=== PATIENT | female | born 1950 | race Caucasian/White ===

== ENCOUNTER 2019-04-23 17:12 | Observation (INO) | payer MEDICARE ==
[2019-04-23 20:26] LABS: CARBON DIOXIDE,CO2 25.3 mmol/L (21.0-32.0); POTASSIUM,K 2.9 mmol/L (3.5-5.1)
[2019-04-23] MEDS ORDERED: Potassium Chloride Riders 20 MEQ in Premix Bag 1 BAG IV ONE (20:44)
--- NOTE | 2019-04-23 21:44 | CR ---
INDICATION: Shortness of breath TECHNIQUE: Single view chest. FINDINGS: The lungs are clear. The heart, mediastinum and pulmonary vessels are of normal size. There is no evidence of pleural disease. IMPRESSION: Negative chest. Dictated by Kelsie Olguin MD @ Apr 23 2019 9:41PM Signed by Dr. Kelsie Olguin @ Apr 23 2019 9:41PM
[2019-04-23] MEDS ORDERED: Sodium Chloride 0.9% 500 ML IV SCH (22:00)
[2019-04-23] MEDS ORDERED: Sodium Chloride 0.9% 1,000 ML IV ONE (23:35)
--- NOTE | 2019-04-23 23:38 | EDM.PDOC ---
ED [facility] GENERAL MEDICAL PROBLEM - General Chief Complaint: General Stated Complaint: POSSIBLE UTI,COLD SYMPTOMS Time Seen by Provider: 04/23/19 20:36 - History of Present Illness INITIAL COMMENTS - FREE TEXT/NARRATIVE: HPI 69-year-old female presents for evaluation of dysuria, urinary frequency, and urge incontinence. Incidentally notes a mild, gradual onset headache that began after she started experiencing urinary frequency. Symptoms been present for 1+ days. No fevers or chills. M/S/F/SocHx notable for: please see HPI; remainder reviewed with patient and in chart. ROS: Negative constitutional, eye, cardiovascular, pulmonary, GI, , MSK, skin , neurologic, psychiatric, endocrine unless noted in the HPI. Exam Gen: Pleasant, non-toxic appearing, resting comfortably. HEENT: NC, AT, PEERL, EOMI. Nontender temporal arteries with 2+ pulses bilaterally. Resp: Clear to auscultation bilaterally, normal work of breathing, no accessory muscle usage. Card: Regular rate and rhythm with no murmurs, rubs, or gallops, extremities warm and well perfused. GI: Non-tender to palpation throughout all quadrants, no focal tenderness at McBurney's point, negative Meyer's sign, non-distended, no rebound or guarding. : No suprapubic tenderness to palpation. MSK: No visible deformities, strength and tone without visually appreciable deficit. Skin: Normal color with no visible lesions. Neuro: alert and oriented 3, no facial asymmetry, no gaze preference, no slurring of speech. CN II-III: pupils equal and reactive (3->2mm bilaterally); III, IV, : EOMI, V1-V3: sensation to touch bilaterally intact; VII: no facial asymmetry (frown / smile); VIII: no nystagmus; X: phonation intact, uvula midline; XI: trapezius 5/5 bilaterally, XII: tongue midline. Cerebellar: no pronator drift, [id number] testing without dysmetria bilaterally, heel to rooney without dysmetria bilaterally. Psych: Mood and affect appropriate. Labs / Imaging: CXR: no acute cardiopulmonary abnormality. WBC 16.14, HB 15.4, sodium 133, potassium 2.9, creatinine 1.1, total bilirubin 1.8, AST 24, ALT 31, lipase 16. UA - positive nitrate, large leukocyte esterase, 3+ bacteria, moderate occult blood. MDM Previous chart, nursing note, labs, imaging, and vitals reviewed. A: 69-year-old female presents for evaluation of dysuria, urinary frequency, and urge incontinence. DDx: UTI, ureterolithiasis, pyelonephritis, sepsis, electrolyte abnormalities. Evaluation: patient with mild hypokalemia, leukocytosis, UTI, and no features ( absence of flank pain or relevant history) of ureterolithiasis. Patient meets [facility] sepsis criteria by leukocytosis and tachycardia, patient previously received 500 ML NS and 20 mEq potassium (ordered by JAZMIN). Lactic acid added on, 1 g ceftriaxone given. Blood cultures ordered. Patient admitted for further care. Impression: sepsis, pyelonephritis, hypokalemia. (please reference below for remainder of encounter information) Critical Care Time Organ system(s): Renal Intervention: Assessment of the patient, interpretation of studies, communication related to patient care. Time: 30 minutes were spent directly related to patient care exclusive of separately billed procedures. headache Pain Score (Numeric/FACES): 7 - Related Data Allergies Allergy/AdvReac Type Severity Reaction Status Date / Time Penicillins Allergy Rash Verified 04/23/19 18:24 Home Meds: Home Meds Albuterol Sulfate [Proair Hfa] 1 puff INH ASDIRECTED 04/23/19 [History] Fluticasone Propionate [Flovent HFA] 1 puff INH ASDIRECTED 04/23/19 [History] Pravastatin [Pravachol] 20 mg PO DAILY 04/23/19 [History] Spironolact/Hydrochlorothiazid [Spironolactone-HCTZ 25-25] 1 tab PO DAILY [History] Past Medical History - Past Health History Medical/Surgical History: Denies Medical/Surgical History Cardiovascular History: Reports: High Cholesterol, Hypertension Respiratory History: Reports: Asthma [employer] History: Reports: - Past Surgical History HEENT Surgical History: Reports: Tonsillectomy Musculoskeletal Surgical History: Reports: Other (See Below) Other Musculoskeletal Surgeries/Procedures:: foot surgery, arm surgery Social & Family History - Family History Family Medical History: Noncontributory - Tobacco Use Smoking Status *Q: Never Smoker - Recreational Drug Use Recreational Drug Use: No ED ROS GENERAL - Review of Systems Review Of Systems: See Below ED EXAM, GENERAL - Physical Exam Exam: See Below Course - Vital Signs Last Recorded V/S: Last Vital Signs Temp 36.8 C 04/23/19 22:15 Pulse 94 04/23/19 22:15 Resp 18 04/23/19 22:15 BP 135/53 L 04/23/19 22:15 Pulse Ox 95 04/23/19 22:15 - Orders/Labs/Meds Orders: Active Orders 24 hr Category Date Time Status EKG Documentation Completion [RC] STAT Care 04/23/19 20:33 Active Head wo Cont [CT] Stat Exams 04/23/19 22:13 Ordered CULTURE BLOOD [BC] Stat Lab 04/23/19 23:36 Ordered CULTURE BLOOD [BC] Stat Lab 04/23/19 23:36 Ordered CULTURE STREP A CONFIRMATION [RM] Stat Lab 04/23/19 19:45 Results CULTURE URINE [RM] Stat Lab 04/23/19 18:48 Received LACTIC ACID,WHOLE BLOOD [BG] Stat Lab 04/23/19 23:36 Ordered STREP SCRN A RAPID W CULT CONF [RM] Stat Lab 04/23/19 19:45 Results Sodium Chloride 0.9% [Normal Saline] 1,000 ml Med 04/23/19 23:35 Ordered IV .Bolus Sodium Chloride 0.9% [Normal Saline] 500 ml Med 04/23/19 22:00 Active IV STAT Blood Culture x2 Reflex Set [OM.PC] Stat Oth 04/23/19 23:36 Ordered Medication Orders Sodium Chloride (Normal Saline) 500 mls @ 999 mls/hr IV STAT BEATRIZ Last Admin: 04/23/19 21:58 Dose: 999 mls/hr Sodium Chloride (Normal Saline) 1,000 mls @ 1,000 mls/hr IV .Bolus ONE Stop: 04/24/19 00:34 Labs: Laboratory Tests 04/23/19 04/23/19 04/23/19 Range/Units 18:48 19:57 19:57 WBC 16.14 H (4.0-11.0) K/uL RBC 5.09 (4.30-5.90) M/uL Hgb 15.4 (12.0-16.0) g/dL Hct 44.0 (36.0-46.0) % MCV 86.4 (80.0-98.0) fL MCH 30.3 (27.0-32.0) pg MCHC 35.0 (31.0-37.0) g/dL RDW Std Deviation 41.5 (28.0-62.0) fl RDW Coeff of [place] 13 (11.0-15.0) % Plt Count 220 (150-400) K/uL MPV 9.70 (7.40-12.00) fL Neut % (Auto) 82.3 H (48.0-80.0) % Lymph % (Auto) 8.3 L (16.0-40.0) % [place] % (Auto) 9.2 (0.0-15.0) % Eos % (Auto) 0.1 (0.0-7.0) % Baso % (Auto) 0.1 (0.0-1.5) % Neut # (Auto) 13.3 H (1.4-5.7) K/uL Lymph # (Auto) 1.3 (0.6-2.4) K/uL [place] # (Auto) 1.5 H (0.0-0.8) K/uL Eos # (Auto) 0.0 (0.0-0.7) K/uL Baso # (Auto) 0.0 (0.0-0.1) K/uL Nucleated RBC % 0.0 /100WBC Nucleated RBCs # 0 K/uL Sodium 133 L (136-145) mmol/L Potassium 2.9 L (3.5-5.1) mmol/L Chloride 95 L (98-107) mmol/L Carbon Dioxide 25.3 (21.0-32.0) mmol/L BUN 21 H (7.0-18.0) mg/dL Creatinine 1.1 H (0.6-1.0) mg/dL Est Cr Clr Drug Dosing 48.26 mL/min Estimated GFR (MDRD) 49.5 ml/min Glucose 118 H (74-106) mg/dL Calcium 9.3 (8.5-10.1) mg/dL Total Bilirubin 1.8 H (0.2-1.0) mg/dL AST 24 (15-37) IU/L ALT 31 (14-63) IU/L Alkaline Phosphatase 105 (46-116) U/L Total Protein 8.1 (6.4-8.2) g/dL Albumin 3.8 (3.4-5.0) g/dL Globulin 4.3 H (2.6-4.0) g/dL Albumin/Globulin Ratio 0.9 (0.9-1.6) Lipase 106 (73-393) U/L Urine Color YELLOW Urine Appearance CLOUDY Urine pH 6.0 (5.0-8.0) Ur Specific [place] 1.025 (1.001-1.035) Urine Protein 100 H (NEGATIVE) mg/dL Urine Glucose (UA) NEGATIVE (NEGATIVE) mg/dL Urine Ketones 15 H (NEGATIVE) mg/dL Urine Occult Blood MODERATE H (NEGATIVE) Urine Nitrite POSITIVE H (NEGATIVE) Urine Bilirubin SMALL H (NEGATIVE) Urine Ictotest NEGATIVE Urine Urobilinogen 2.0 H (<2.0) EU/dL Ur Leukocyte Esterase LARGE H (NEGATIVE) Urine RBC 0-3 (0-2/HPF) Urine WBC 15-25 (0-5/HPF) Ur Epithelial Cells FEW (NONE-FEW) Urine Bacteria 3+ H (NEGATIVE) Meds: Medications Generic Name Dose Route Start Last Admin Trade Name Freq PRN Reason Stop Dose Admin Sodium Chloride 500 mls @ 999 mls/hr 04/23/19 22:00 04/23/19 21:58 Normal Saline IV 999 mls/hr STAT BEATRIZ Administration Sodium Chloride 1,000 mls @ 1,000 mls/hr 04/23/19 23:35 Normal Saline IV 04/24/19 00:34 .Bolus ONE Discontinued Medications Generic Name Dose Route Start Last Admin Trade Name Freq PRN Reason Stop Dose Admin Potassium Chloride 20 meq/ 50 mls @ 25 mls/hr 04/23/19 20:44 04/23/19 21:03 Premix IV 04/23/19 22:43 25 mls/hr ONETIME ONE Administration Departure - Departure Time of Disposition: 23:38 Disposition: Admitted As Inpatient 68 Clinical Impression: Sepsis - Discharge Information Referrals: PCP,None [Primary Care Provider] - Sepsis Event Note - Evaluation Sepsis Screening Result: No Definite Risk - Focused Exam Vital Signs: Vital Signs Temp Pulse Resp BP Pulse Ox 04/23/19 22:15 36.8 C 94 18 135/53 L 95 04/23/19 18:21 36.9 C 115 H 18 131/65 94 L Date Exam was Performed: 04/23/19 Time Exam was Performed: 23:37 - My Orders Last 24 Hours: My Active Orders 04/23/19 22:13 Head wo Cont [CT] Stat 04/23/19 23:35 Sodium Chloride 0.9% [Normal Saline] 1,000 ml IV .Bolus 04/23/19 23:36 CULTURE BLOOD [BC] Stat CULTURE BLOOD [BC] Stat LACTIC ACID,WHOLE BLOOD [BG] Stat Blood Culture x2 Reflex Set [OM.PC] Stat - Assessment/Plan Last 24 Hours: My Active Orders 04/23/19 22:13 Head wo Cont [CT] Stat 04/23/19 23:35 Sodium Chloride 0.9% [Normal Saline] 1,000 ml IV .Bolus 04/23/19 23:36 CULTURE BLOOD [BC] Stat CULTURE BLOOD [BC] Stat LACTIC ACID,WHOLE BLOOD [BG] Stat Blood Culture x2 Reflex Set [OM.PC] Stat
[2019-04-23] MEDS ORDERED: cefTRIAXone 1 GM in Premix Bag 1 BAG IV ONE (23:46)
[2019-04-24] MEDS ORDERED: Ondansetron 4 MG/2 ML SDV IVPUSH PRN (01:06)
[2019-04-24] MEDS ORDERED: Morphine 2 MG/ML Syringe IVPUSH PRN (01:12)
[2019-04-24] MEDS ORDERED: Potassium Chloride 20 MEQ Tab.ER PO ONE ×2 (01:13→10:00)
[2019-04-24] MEDS: Sodium Chloride 0.9% 1,000 ML IV SCH ×3 (01:30→17:43)
[2019-04-24] MEDS: Acetaminophen 500 MG Tab PO PRN ×2 (06:19→15:57)
[2019-04-24 06:38] LABS: BLOOD UREA NITROGEN,BUN 17 mg/dL (7.0-18.0); CARBON DIOXIDE,CO2 24.2 mmol/L (21.0-32.0); CHLORIDE,CL 100 mmol/L (98-107); GLUCOSE RANDOM 111 mg/dL (74-106); POTASSIUM,K 3.1 mmol/L (3.5-5.1); SODIUM,NA 135 mmol/L (136-145)
--- NOTE | 2019-04-24 09:42 | PCM.HP.2 ---
H&P History of Present Illness - General Date of Service: 04/24/19 Admit Problem/Dx: Admission Diagnosis/Problem Admission Diagnosis/Problem Sepsis - History of Present Illness Initial Comments - Free Text/Narative: 69-year-old female with PMH of HTN presents to the ER for evaluation of urinary frequency, and urge incontinence for past 2 days. States she has 1 prior episode of UTI 2 year back. Denied fever, chills, N/V, abdominal pain, did endorse headache. Denied chest pain, palpitations, sob, syncope. Patient was found to have a UA positive for UTI, patient was also found to have a high WBC count, with tachycardiac, lactate was normal. Patient was admitted for management of sepsis secondary to UTI and started on IV Rocephin. Onset of Symptoms: Reports: Gradual Duration of Symptoms: Reports: Day(s): Quality: Reports: Burning Improves with: Reports: None Worsens with: Reports: None headache Pain Score (Numeric/FACES): 7 - Related Data Allergies/Adverse Reactions: Allergies Allergy/AdvReac Type Severity Reaction Status Date / Time Penicillins Allergy Mild Rash Verified 04/24/19 01:35 Home Medications: Home Meds Albuterol Sulfate [Proair Hfa] 1 puff INH ASDIRECTED PRN 04/23/19 [History] Fluticasone Propionate [Flovent HFA] 1 puff INH ASDIRECTED PRN 04/23/19 [History ] Pravastatin [Pravachol] 20 mg PO BEDTIME 04/23/19 [History] Spironolact/Hydrochlorothiazid [Spironolactone-HCTZ 25-25] 25 mg PO DAILY [History] Past Medical History - Past Health History Medical/Surgical History: Denies Medical/Surgical History Cardiovascular History: Reports: High Cholesterol, Hypertension Respiratory History: Reports: Asthma [employer] History: Reports: - Past Surgical History HEENT Surgical History: Reports: Tonsillectomy Musculoskeletal Surgical History: Reports: Other (See Below) Other Musculoskeletal Surgeries/Procedures:: foot surgery, arm surgery Social & Family History - Family History Family Medical History: Noncontributory - Tobacco Use Smoking Status *Q: Never Smoker - Caffeine Use Caffeine Use: Reports: Coffee - Recreational Drug Use Recreational Drug Use: No H&P Review of Systems - Review of Systems: General: Reports: Fever, Chills. Denies: Malaise, Weakness, Fatigue, Night Sweats Pulmonary: Denies: Shortness of Breath, Wheezing Cardiovascular: Denies: Chest Pain, Palpitations Gastrointestinal: Denies: Abdominal Pain, Anorexia, Black Stool, Bloody Stool Genitourinary: Reports: Dysuria, Frequency. Denies: Burning, Pain Musculoskeletal: Denies: Neck Pain, Shoulder Pain, Arm Pain Skin: Denies: Cyanosis, Jaundice Psychiatric: Denies: Confusion, Depression, Mood Lability Exam - Exam Exam: See Below - Vital Signs Vital Signs: Last Vital Signs Temp 36.9 C 04/24/19 07:53 Pulse 92 04/24/19 07:53 Resp 18 04/24/19 07:53 BP 128/59 L 04/24/19 07:53 Pulse Ox 91 L 04/24/19 07:53 Weight: 92.8 kg - Exam General: Alert, Oriented HEENT: Conjunctiva Clear Neck: Supple, Trachea Midline Lungs: Clear to Auscultation, Normal Respiratory Effort Cardiovascular: Regular Rate, Regular Rhythm GI/Abdominal Exam: Normal Bowel Sounds, Soft, Non-Tender Back Exam: Normal Inspection, Full Range of Motion. No: CVA Tenderness (L), CVA Tenderness (R) Extremities: Normal Inspection, Normal Range of Motion Peripheral Pulses: 3+: Dorsalis Pedis (L), Dorsalis Pedis (R) - Patient Data Lab Results Last 24 hrs: Laboratory Results - last 24 hr 04/23/19 04/23/19 04/23/19 Range/Units 18:48 19:57 19:57 WBC 16.14 H (4.0-11.0) K/uL RBC 5.09 (4.30-5.90) M/uL Hgb 15.4 (12.0-16.0) g/dL Hct 44.0 (36.0-46.0) % MCV 86.4 (80.0-98.0) fL MCH 30.3 (27.0-32.0) pg MCHC 35.0 (31.0-37.0) g/dL RDW Std Deviation 41.5 (28.0-62.0) fl RDW Coeff of [place] 13 (11.0-15.0) % Plt Count 220 (150-400) K/uL MPV 9.70 (7.40-12.00) fL Neut % (Auto) 82.3 H (48.0-80.0) % Lymph % (Auto) 8.3 L (16.0-40.0) % [place] % (Auto) 9.2 (0.0-15.0) % Eos % (Auto) 0.1 (0.0-7.0) % Baso % (Auto) 0.1 (0.0-1.5) % Neut # (Auto) 13.3 H (1.4-5.7) K/uL Lymph # (Auto) 1.3 (0.6-2.4) K/uL [place] # (Auto) 1.5 H (0.0-0.8) K/uL Eos # (Auto) 0.0 (0.0-0.7) K/uL Baso # (Auto) 0.0 (0.0-0.1) K/uL Nucleated RBC % 0.0 /100WBC Nucleated RBCs # 0 K/uL Lactate (0.20-2.00) mmol/L Sodium 133 L (136-145) mmol/L Potassium 2.9 L (3.5-5.1) mmol/L Chloride 95 L (98-107) mmol/L Carbon Dioxide 25.3 (21.0-32.0) mmol/L BUN 21 H (7.0-18.0) mg/dL Creatinine 1.1 H (0.6-1.0) mg/dL Est Cr Clr Drug Dosing 48.26 mL/min Estimated GFR (MDRD) 49.5 ml/min Glucose 118 H (74-106) mg/dL Calcium 9.3 (8.5-10.1) mg/dL Phosphorus (2.6-4.7) mg/dL Magnesium (1.8-2.4) mg/dL Total Bilirubin 1.8 H (0.2-1.0) mg/dL AST 24 (15-37) IU/L ALT 31 (14-63) IU/L Alkaline Phosphatase 105 (46-116) U/L Total Protein 8.1 (6.4-8.2) g/dL Albumin 3.8 (3.4-5.0) g/dL Globulin 4.3 H (2.6-4.0) g/dL Albumin/Globulin Ratio 0.9 (0.9-1.6) Lipase 106 (73-393) U/L Urine Color YELLOW Urine Appearance CLOUDY Urine pH 6.0 (5.0-8.0) Ur Specific [place] 1.025 (1.001-1.035) Urine Protein 100 H (NEGATIVE) mg/dL Urine Glucose (UA) NEGATIVE (NEGATIVE) mg/dL Urine Ketones 15 H (NEGATIVE) mg/dL Urine Occult Blood MODERATE H (NEGATIVE) Urine Nitrite POSITIVE H (NEGATIVE) Urine Bilirubin SMALL H (NEGATIVE) Urine Ictotest NEGATIVE Urine Urobilinogen 2.0 H (<2.0) EU/dL Ur Leukocyte Esterase LARGE H (NEGATIVE) Urine RBC 0-3 (0-2/HPF) Urine WBC 15-25 (0-5/HPF) Ur Epithelial Cells FEW (NONE-FEW) Urine Bacteria 3+ H (NEGATIVE) 04/23/19 04/24/19 04/24/19 Range/Units 23:40 06:05 06:05 WBC 13.64 H (4.0-11.0) K/uL RBC 4.57 (4.30-5.90) M/uL Hgb 13.7 (12.0-16.0) g/dL Hct 39.8 (36.0-46.0) % MCV 87.1 (80.0-98.0) fL MCH 30.0 (27.0-32.0) pg MCHC 34.4 (31.0-37.0) g/dL RDW Std Deviation 41.9 (28.0-62.0) fl RDW Coeff of [place] 13 (11.0-15.0) % Plt Count 186 (150-400) K/uL MPV 9.80 (7.40-12.00) fL Neut % (Auto) 83.8 H (48.0-80.0) % Lymph % (Auto) 5.9 L (16.0-40.0) % [place] % (Auto) 9.9 (0.0-15.0) % Eos % (Auto) 0.3 (0.0-7.0) % Baso % (Auto) 0.1 (0.0-1.5) % Neut # (Auto) 11.4 H (1.4-5.7) K/uL Lymph # (Auto) 0.8 (0.6-2.4) K/uL [place] # (Auto) 1.4 H (0.0-0.8) K/uL Eos # (Auto) 0.0 (0.0-0.7) K/uL Baso # (Auto) 0.0 (0.0-0.1) K/uL Nucleated RBC % 0.0 /100WBC Nucleated RBCs # 0 K/uL Lactate 0.7 (0.20-2.00) mmol/L Sodium 135 L (136-145) mmol/L Potassium 3.1 L (3.5-5.1) mmol/L Chloride 100 (98-107) mmol/L Carbon Dioxide 24.2 (21.0-32.0) mmol/L BUN 17 (7.0-18.0) mg/dL Creatinine 0.9 (0.6-1.0) mg/dL Est Cr Clr Drug Dosing 58.99 mL/min Estimated GFR (MDRD) > 60.0 ml/min Glucose 111 H (74-106) mg/dL Calcium 8.0 L (8.5-10.1) mg/dL Phosphorus 2.0 L (2.6-4.7) mg/dL Magnesium 1.6 L (1.8-2.4) mg/dL Total Bilirubin (0.2-1.0) mg/dL AST (15-37) IU/L ALT (14-63) IU/L Alkaline Phosphatase (46-116) U/L Total Protein (6.4-8.2) g/dL Albumin (3.4-5.0) g/dL Globulin (2.6-4.0) g/dL Albumin/Globulin Ratio (0.9-1.6) Lipase (73-393) U/L Urine Color Urine Appearance Urine pH (5.0-8.0) Ur Specific [place] (1.001-1.035) Urine Protein (NEGATIVE) mg/dL Urine Glucose (UA) (NEGATIVE) mg/dL Urine Ketones (NEGATIVE) mg/dL Urine Occult Blood (NEGATIVE) Urine Nitrite (NEGATIVE) Urine Bilirubin (NEGATIVE) Urine Ictotest Urine Urobilinogen (<2.0) EU/dL Ur Leukocyte Esterase (NEGATIVE) Urine RBC (0-2/HPF) Urine WBC (0-5/HPF) Ur Epithelial Cells (NONE-FEW) Urine Bacteria (NEGATIVE) Result Diagrams: 04/24/19 06:05 04/24/19 06:05 Yobani Results Last 24 hrs: Microbiology 04/23/19 19:45 Group A Streptococcus Rapid Screen - Final Throat NEGATIVE STREP A SCREEN REFERENCE RANGE: NEGATIVE 04/23/19 18:45 Influenza Type A Antigen Screen - Final Nasopharyngeal Swab NEGATIVE INFLUENZA A VIRUS AG REFERENCE RANGE: NEGATIVE Influenza Type B Antigen Screen - Final NEGATIVE INFLUENZA B VIRUS AG REFERENCE RANGE: NEGATIVE Sepsis Event Note - Evaluation Sepsis Screening Result: No Definite Risk - Focused Exam Vital Signs: Vital Signs Temp Temp Pulse Resp BP Pulse Ox 04/24/19 07:53 36.9 C 92 18 128/59 L 91 L 04/24/19 07:00 36.9 C 04/24/19 06:19 38.2 C H 04/24/19 05:22 38.1 C 104 H 20 137/57 L 92 L 04/24/19 00:45 36.5 C 86 16 141/60 H 95 04/24/19 00:12 36.7 C 92 18 124/61 93 L 04/23/19 22:15 36.8 C 94 18 135/53 L 95 Date Exam was Performed: 04/24/19 Time Exam was Performed: 17:09 *Q Meaningful Use (ADM) - VTE Risk Assess *Q Each Risk Factor Represents 2 Points: Age 60 - 74 Years Total Score 2 Point Risk Factors: 2 - Problem List (1) UTI (urinary tract infection) SNOMED Code(s): 36847316 ICD Code: N39.0 - URINARY TRACT INFECTION, SITE NOT SPECIFIED Status: Acute Current Visit: Yes (2) Sepsis SNOMED Code(s): 98834228 ICD Code: A41.9 - SEPSIS, UNSPECIFIED ORGANISM Status: Acute Current Visit: Yes (3) HTN (hypertension) SNOMED Code(s): 79514364 ICD Code: I10 - ESSENTIAL (PRIMARY) HYPERTENSION Status: Acute Current Visit: Yes Orders Last 24hrs: Active Orders 24 hr Category Date Time Status Patient Status [ADT] Stat ADT 04/23/19 23:40 Active Vital Signs [RC] Q4H Care 04/24/19 04:00 Active Heart Healthy Diet [DIET] Diet 04/24/19 Breakfast Active Head wo Cont [CT] Stat Exams 04/23/19 22:13 Ordered CULTURE BLOOD [BC] Stat Lab 04/23/19 23:40 Received CULTURE BLOOD [] Stat Lab 04/23/19 23:50 Received CULTURE STREP A CONFIRMATION [] Stat Lab 04/23/19 19:45 Results CULTURE URINE [] Stat Lab 04/23/19 18:48 Received STREP SCRN A RAPID W CULT CONF [] Stat Lab 04/23/19 19:45 Results Acetaminophen [Tylenol Extra Strength] Med 04/24/19 01:10 Active 500 mg PO Q6H PRN Morphine Med 04/24/19 01:12 Active 1 mg IVPUSH Q4H PRN Ondansetron [Zofran] Med 04/24/19 01:06 Active 4 mg IVPUSH Q4H PRN Sodium Chloride 0.9% [Normal Saline] 1,000 ml Med 04/24/19 01:15 Active IV ASDIRECTED Sodium Chloride 0.9% [Normal Saline] 500 ml Med 04/23/19 22:00 Active IV STAT cefTRIAXone [Rocephin in Dextrose,Iso-Osm 1 GM/50 ML] 1 Med 04/24/19 21:00 Active gm Premix Bag 1 bag IV Q24H Blood Culture x2 Reflex Set [OM.PC] Stat Oth 04/23/19 23:36 Ordered Medication Orders Acetaminophen (Tylenol Extra Strength) 500 mg PO Q6H PRN PRN Reason: Fever Last Admin: 04/24/19 06:19 Dose: 500 mg Sodium Chloride (Normal Saline) 500 mls @ 999 mls/hr IV STAT [facility] Last Admin: 04/23/19 21:58 Dose: 999 mls/hr Sodium Chloride (Normal Saline) 1,000 mls @ 125 mls/hr IV ASDIRECTED BEATRIZ Last Admin: 04/24/19 09:37 Dose: 125 mls/hr Infusion: 04/24/19 09:30 Dose: 125 mls/hr Admin: 04/24/19 01:30 Dose: 125 mls/hr Ceftriaxone Sodium/Dextrose 1 (gm/ Premix) 50 mls @ 100 mls/hr IV Q24H [facility] Morphine Sulfate (Morphine) 1 mg IVPUSH Q4H PRN PRN Reason: Pain Ondansetron HCl (Zofran) 4 mg IVPUSH Q4H PRN PRN Reason: Nausea Last Admin: 04/24/19 05:12 Dose: 4 mg Assessment/Plan Comment:: 69 y/o F admitted for sepsis secondary to UTI Received IVF in ER Started on IV Rocephin , will continue f/u on urine cultures f/u on blood cultures monitor and replete electrolytes resume statin hold off on Antihypertensives for now monitor and replete electrolytes as needed
[2019-04-24] MEDS ORDERED: Potassium Chloride 10% 20 MEQ/15 ML Soln 30 ML UD Cup PO ONE (09:43)
[2019-04-24] MEDS ORDERED: Phosphorus #1 250 MG Tab PO ONE (09:44)
[2019-04-24] MEDS ORDERED: Magnesium Oxide 400 MG Tab PO ONE (09:44)
[2019-04-24] MEDS ORDERED: Pravastatin 40 MG Tab PO SCH (21:00)
[2019-04-24] MEDS ORDERED: cefTRIAXone 1 GM in Premix Bag 1 BAG IV SCH (21:00)
[2019-04-25] MEDS: Sodium Chloride 0.9% 1,000 ML IV SCH ×2 (03:42→12:16)
[2019-04-25] MEDS: Acetaminophen 500 MG Tab PO PRN (03:47)
[2019-04-25 06:10] LABS: BLOOD UREA NITROGEN,BUN 15 mg/dL (7.0-18.0); CARBON DIOXIDE,CO2 24.1 mmol/L (21.0-32.0); CHLORIDE,CL 105 mmol/L (98-107); GLUCOSE RANDOM 106 mg/dL (74-106); POTASSIUM,K 3.3 mmol/L (3.5-5.1); SODIUM,NA 137 mmol/L (136-145)
[2019-04-25] MEDS ORDERED: Magnesium Sulfate/Water 2 GM in Premix Bag 1 BAG IV ONE (08:17)
[2019-04-25] MEDS ORDERED: Potassium Chloride 20 MEQ Tab.ER PO ONE (08:17)
--- NOTE | 2019-04-25 12:37 | PCM.DCSUM1 ---
Discharge Summary - Hospital Course Brief History: 69-year-old female with PMH of HTN presents to the ER for evaluation of urinary frequency, and urge incontinence for past 2 days. States she has 1 prior episode of UTI 2 year back. Denied fever, chills, N/V, abdominal pain, did endorse headache. Denied chest pain, palpitations, sob, syncope. Patient was found to have a UA positive for UTI, patient was also found to have a high WBC count, with tachycardiac, lactate was normal. Patient was admitted for management of sepsis secondary to UTI and started on IV Rocephin. Diagnosis: Stroke: No - Discharge Data Discharge Date: 04/25/19 Discharge Disposition: Home, Self-Care 01 Condition: Good - Referral to Home Health Primary Care Physician: PCP None - Patient Instructions Diet: Regular Diet as Tolerated Activity: As Tolerated Driving: May Drive Today Showering/Bathing: May Shower Notify Provider of: Fever, Increased Pain, Swelling and Redness, Drainage, Nausea and/or Vomiting - Discharge Plan *PRESCRIPTION DRUG MONITORING PROGRAM REVIEWED*: Not Applicable *COPY OF PRESCRIPTION DRUG MONITORING REPORT IN PATIENT NICOLE: Not Applicable Prescriptions/Med Rec: Ciprofloxacin HCl [Cipro] 500 mg PO BID #14 tablet Home Medications: Home Meds Albuterol Sulfate [Proair Hfa] 1 puff INH ASDIRECTED PRN 04/23/19 [History] Fluticasone Propionate [Flovent HFA] 1 puff INH ASDIRECTED PRN 04/23/19 [History ] Pravastatin [Pravachol] 20 mg PO BEDTIME 04/23/19 [History] Spironolact/Hydrochlorothiazid [Spironolactone-HCTZ 25-25] 25 mg PO DAILY [History] Ciprofloxacin HCl [Cipro] 500 mg PO BID #14 tablet 04/25/19 [Rx] Oxygen Therapy Mode: Room Air Patient Handouts: Sepsis, Adult, Urinary Tract Infection, Adult, Ciprofloxacin tablets Referrals: Kayy Anderson NP [Ordering Only Provider] - 05/02/19 1:30 pm (Your appointment was not able to be made with Kat Parham, who you saw before, because she is no longer there. ) - Discharge Summary/Plan Comment DC Time >30 min.: No Discharge Summary/Plan Comment: Admitting Diagnoses: Sepsis Pyelonephritis Discharge Diagnoses: Sepsis- resolved E coli Pyelonephritis Bj was admitted with sepsis secondary to positive UTI and pyelonephritis. She was started on Rocephin. BC and UC pending on admission. She was given IVFs and improved during her stay. Leukocytosis improved with antibiotic treatment. Today she is feeling much improved and would like to go home. UC returned today positive for E coli sensitive to Ciprofloxacin. She will be discharged home today with Cipro for another 7 days, for total 10 day course. BC remained negative x 1 day. She would counseled on monitoring how she is feeling and to return to the ED or clinic if concerns should arise. - General Info Date of Service: 04/25/19 Admission Dx/Problem (Free Text: Admission Diagnosis/Problem Admission Diagnosis/Problem Sepsis Subjective Update: Bj reports feeling well today and is concerned about a foster child of his that is sick with respiratory symptoms. She has been up ambulating and feeling well. She denies chest pain or SOB. Eating and drinking well. Afebrile. Functional Status: Reports: Pain Controlled, Tolerating Diet, Ambulating, Urinating - Review of Systems General: Reports: Fatigue (overall, but improved.) HEENT: Reports: No Symptoms. Denies: Sore Throat Pulmonary: Reports: No Symptoms. Denies: Shortness of Breath Cardiovascular: Reports: No Symptoms. Denies: Chest Pain Gastrointestinal: Reports: No Symptoms. Denies: Abdominal Pain, Nausea, Vomiting Genitourinary: Reports: No Symptoms. Denies: Dysuria, Frequency Neurological: Reports: No Symptoms Psychiatric: Reports: No Symptoms - Patient Data Vitals - Most Recent: Last Vital Signs Temp 98.1 F 04/25/19 12:00 Pulse 71 04/25/19 12:00 Resp 18 04/25/19 12:00 BP 110/65 04/25/19 12:00 Pulse Ox 94 L 04/25/19 12:00 Weight - Most Recent: 92.8 kg I&O - Last 24 hours: Intake & Output 04/24/19 04/25/19 04/25/19 22:59 06:59 14:59 Intake Total 2267 1443 Output Total 180 350 Balance 2087 1093 Lab Results - Last 24 hrs: Laboratory Results - last 24 hr 04/25/19 04/25/19 Range/Units 05:20 05:20 WBC 7.46 (4.0-11.0) K/uL RBC 4.20 L (4.30-5.90) M/uL Hgb 12.4 (12.0-16.0) g/dL Hct 36.9 (36.0-46.0) % MCV 87.9 (80.0-98.0) fL MCH 29.5 (27.0-32.0) pg MCHC 33.6 (31.0-37.0) g/dL RDW Std Deviation 42.1 (28.0-62.0) fl RDW Coeff of [place] 13 (11.0-15.0) % Plt Count 194 (150-400) K/uL MPV 10.20 (7.40-12.00) fL Neut % (Auto) 74.1 (48.0-80.0) % Lymph % (Auto) 12.7 L (16.0-40.0) % [place] % (Auto) 11.0 (0.0-15.0) % Eos % (Auto) 1.9 (0.0-7.0) % Baso % (Auto) 0.3 (0.0-1.5) % Neut # (Auto) 5.5 (1.4-5.7) K/uL Lymph # (Auto) 1.0 (0.6-2.4) K/uL [place] # (Auto) 0.8 (0.0-0.8) K/uL Eos # (Auto) 0.1 (0.0-0.7) K/uL Baso # (Auto) 0.0 (0.0-0.1) K/uL Nucleated RBC % 0.0 /100WBC Nucleated RBCs # 0 K/uL Sodium 137 (136-145) mmol/L Potassium 3.3 L (3.5-5.1) mmol/L Chloride 105 (98-107) mmol/L Carbon Dioxide 24.1 (21.0-32.0) mmol/L BUN 15 (7.0-18.0) mg/dL Creatinine 0.9 (0.6-1.0) mg/dL Est Cr Clr Drug Dosing 58.99 mL/min Estimated GFR (MDRD) > 60.0 ml/min Glucose 106 (74-106) mg/dL Calcium 8.1 L (8.5-10.1) mg/dL Phosphorus 1.8 L (2.6-4.7) mg/dL Magnesium 1.8 (1.8-2.4) mg/dL KELY Results - Last 24 hrs: Microbiology 04/23/19 19:45 Quick Strep Confirmation Culture - Final Throat NO GROUP A STREP ISOLATED REFERENCE RANGE: NEGATIVE Group A Streptococcus Rapid Screen - Final NEGATIVE STREP A SCREEN REFERENCE RANGE: NEGATIVE 04/23/19 18:48 Urine Culture - Final Urine, Clean Catch Escherichia Coli 04/23/19 23:50 Aerobic Blood Culture - Preliminary Blood - Venous - Lab Draw NO GROWTH AFTER 1 DAY Anaerobic Blood Culture - Preliminary NO GROWTH AFTER 1 DAY 04/23/19 23:40 Aerobic Blood Culture - Preliminary Blood - Venous NO GROWTH AFTER 1 DAY Anaerobic Blood Culture - Preliminary NO GROWTH AFTER 1 DAY Med Orders - Current: Current Medications Acetaminophen (Tylenol Extra Strength) 500 mg PO Q6H PRN PRN Reason: Fever Last Admin: 04/25/19 03:47 Dose: 500 mg Sodium Chloride (Normal Saline) 1,000 mls @ 125 mls/hr IV ASDIRECTED [facility] Last Admin: 04/25/19 12:16 Dose: 125 mls/hr Ceftriaxone Sodium/Dextrose 1 (gm/ Premix) 50 mls @ 100 mls/hr IV Q24H [facility] Last Admin: 04/24/19 20:41 Dose: 100 mls/hr Morphine Sulfate (Morphine) 1 mg IVPUSH Q4H PRN PRN Reason: Pain Ondansetron HCl (Zofran) 4 mg IVPUSH Q4H PRN PRN Reason: Nausea Last Admin: 04/24/19 05:12 Dose: 4 mg Pravastatin Sodium (Pravachol) 20 mg PO BEDTIME [facility] Last Admin: 04/24/19 20:40 Dose: 20 mg Discontinued Medications Potassium Chloride 20 meq/ (Premix) 50 mls @ 25 mls/hr IV ONETIME ONE Stop: 04/23/19 22:43 Last Admin: 04/23/19 21:03 Dose: 25 mls/hr Sodium Chloride (Normal Saline) 500 mls @ 999 mls/hr IV STAT [facility] Last Admin: 04/23/19 21:58 Dose: 999 mls/hr Sodium Chloride (Normal Saline) 1,000 mls @ 1,000 mls/hr IV .Bolus ONE Stop: 04/24/19 00:34 Last Admin: 04/24/19 00:05 Dose: 1,000 mls/hr Ceftriaxone Sodium/Dextrose 1 (gm/ Premix) 50 mls @ 100 mls/hr IV ONETIME ONE Stop: 04/24/19 00:15 Last Admin: 04/24/19 00:06 Dose: 100 mls/hr Magnesium Sulfate 2 gm/ Premix 50 mls @ 50 mls/hr IV ONETIME ONE Stop: 04/25/19 09:16 Last Admin: 04/25/19 08:58 Dose: 50 mls/hr Magnesium Oxide (Magnesium Oxide) 400 mg PO ONETIME ONE Stop: 04/24/19 09:45 Last Admin: 04/24/19 10:11 Dose: 400 mg Potassium Chloride (Klor-Con M20) 40 meq PO ONETIME ONE Stop: 04/24/19 01:14 Last Admin: 04/24/19 01:40 Dose: 40 meq Potassium Chloride (Klor-Con M20) 40 meq PO ONETIME ONE Stop: 04/24/19 10:01 Last Admin: 04/24/19 10:17 Dose: 40 meq Potassium Chloride (Klor-Con M20) 40 meq PO ONETIME ONE Stop: 04/25/19 08:18 Last Admin: 04/25/19 08:58 Dose: 40 meq Sodium Phosphate (Neutra-Phos) 250 mg PO ONETIME ONE Stop: 04/24/19 09:45 Last Admin: 04/24/19 10:10 Dose: 250 mg - Exam General: Reports: Alert, Oriented, Cooperative, No Acute Distress Lungs: Reports: Clear to Auscultation, Normal Respiratory Effort Cardiovascular: Reports: Regular Rate, Regular Rhythm GI/Abdominal Exam: Normal Bowel Sounds, Soft, Non-Tender, No Organomegaly Extremities: Normal Inspection, Normal Range of Motion Neurological: Reports: No New Focal Deficit Psy/Mental Status: Reports: Alert, Normal Affect, Normal Mood
== END 2019-04-25 13:00 | disposition home or self-care (01) ==
LOC: MW.ED 17:12 → MW.MS 23:40
PROVIDERS: ADMIT Student in an Organized Health Care Education/Training Program; ATTEND Student in an Organized Health Care Education/Training Program
DX: A41.9 Sepsis, unspecified organism (principal); N12 Tubulo-interstitial nephritis, not specified as acute or chronic; B96.20 Unspecified Escherichia coli [E. coli] as the cause of diseases classified elsewhere; N39.41 Urge incontinence; I10 Essential (primary) hypertension; E78.00 Pure hypercholesterolemia, unspecified; J45.909 Unspecified asthma, uncomplicated; Z88.0 Allergy status to penicillin; Z79.51 Long term (current) use of inhaled steroids
CPT/HCPCS: 36415; 71045; 80048; 80053; 81001; 81003; 83605; 83690; 83735; 84100; 85025; 87040; 87081; 87086; 87088; 87186; 87804; 87880; 93005; 96365; 96366; 99285; A9270; J0696; J2405; J3475; J3480; J7030; J7040